=== PATIENT | male | born 1970 | race African-American/Black ===

== ENCOUNTER → 2016-12-23 | Outpatient (CLI) | payer OTHER ==
--- NOTE | ~2016-12-23 | MR104 ---
[facility] A Service of [facility] & [facility] RADIOLOGY TEXT RESULTS PATIENT: EDGAR WEST LOCATION: [facility] : 72 UNIT #: [id number] AGE: [address]: KELLY ASH APRN SEX: M ORDER DR: [id number] [facility] [address] [place], [place] [address] [id number] O MR#: [id number] Acc #: [id number] NAME: EDGAR WEST : 1970 SEX: M STUDY DATE/TIME: 12/23/2016 7:24 UNIT: [facility] ROOM: STUDY DESCRIPTION: MR Knee Wo Contrast Rt Attending Physician: Kelly Ash R.N. Referring Physician: Kelly Ash R.N. Ordering Physician: Kelly Ash R.N. Primary Care Physician: Kelly Ash R.N. MRI CENTER REPORT This report is preliminary unless electronic signature is present. EXAM MRI right knee, 12/23/2016 COMPARISON Right knee radiographs, 11/28/2016 HISTORY Order states right knee pain. History sheet states 3 weeks ago he went to turn but his foot did not turn but his leg did twice. Turning injury at work. Medial and posterior pain and swelling. No knee surgery. FINDINGS There is a moderate effusion with a small 2.0-3.0 cm popliteal cyst with surrounding inflammation. Patellofemoral alignment and articular cartilage are normal. Quadriceps and patellar tendons are normal. There is abnormal interstitial ACL signal compatible with ligamentous sprain. There is no discrete tear or detachment. The PCL is intact. The lateral meniscus, lateral collateral ligament complex, and popliteus tendon are intact. Articular cartilage of the lateral compartment is normal. There is a longitudinal complex tear in the posterior body and horn of the medial meniscus with a dominant longitudinal vertical tear. There is also a horizontal tear line extending to the periphery. There is no parameniscal cyst. There is underlying bone contusion versus reactive marrow edema of the posterior medial tibial plateau. No articular cartilage abnormality is noted. There is a grade 1 MCL sprain. Medial compartment articular cartilage is normal. [facility] A Service of [facility] & [facility] RADIOLOGY TEXT RESULTS PATIENT: EDGAR WEST LOCATION: [facility] : 72 UNIT #: [id number] AGE: [address]: KELLY ASH DINING SERVER SEX: M ORDER DR: There is a small bone contusion versus enthesopathic edema along the posterior-superior aspect of the medial femoral condyle at the medial gastrocnemius origin. There is generalized periarticular inflammation. No high-grade posterolateral corner injury is noted. Popliteus muscle strain is noted. There is no marrow lesion, fracture, or loose body. IMPRESSION 1. The predominant abnormality is a longitudinal complex tear of the posterior body and horn of the medial meniscus without a displaced flap or fragment detailed above. 2. ACL sprain without tear or detachment. 3. Posteromedial subarticular tibial bone contusion versus reactive edema from the meniscus tear. 4. Tendinosis and enthesopathy with marrow edema of the medial gastrocnemius origin on the femur. 5. Joint effusion and small popliteal cyst. Nonspecific periarticular inflammation. 6. Strain of the popliteus muscle. Dictated by... Yajaira Hooks M.D. THIS IS AN ELECTRONICALLY VERIFIED REPORT Yajaira Hooks M.D. at 12/27/2016 8:38 AM Manpreet TD: 12/26/2016 17:35 JOB #: [id number] MRI CENTER REPORT Page 1 of 1 COPY
== END | disposition home or self-care (01) ==
LOC: CMRI 06:55
DX: M25.561 Pain in right knee (principal); S83.231A Complex tear of medial meniscus, current injury, right knee, initial encounter; S83.511A Sprain of anterior cruciate ligament of right knee, initial encounter; M76.891 Other specified enthesopathies of right lower limb, excluding foot; M71.21 Synovial cyst of popliteal space [Baker], right knee; M25.461 Effusion, right knee; S86.911A Strain of unspecified muscle(s) and tendon(s) at lower leg level, right leg, initial encounter
CPT/HCPCS: 73721